=== PATIENT | male | born 1970 | race Caucasian/White ===

== ENCOUNTER 2017-09-03 07:06 | Day surgery (SDC) | payer OTHER ==
[~2017-09-03 07:06] MED LIST: Buffered Lidocaine 0.9% SYRIN* 5 ML/SYR SYRINGE INTRADERM ONE
[2017-09-03] MEDS ORDERED: ceFAZolin 2 GM PREMIX (*) 2 GM/50 ML BAG IVPB ONE (07:20)
[2017-09-03] MEDS ORDERED: Buffered Lidocaine 0.9% SYRIN* 5 ML/SYR SYRINGE ONE (07:20)
[2017-09-03] MEDS ORDERED: fentaNYL* 50 MCG/ML 2 ML VIAL (100 MCG VIAL) ONE (09:44)
[2017-09-03] MEDS ORDERED: Midazolam* 1 MG/ML 2 ML VIAL (2 MG) ONE (09:45)
[2017-09-03] MEDS ORDERED: Propofol* 10 MG/ML 20 ML BTL IV PUSH ONE (10:15)
[2017-09-03] MEDS ORDERED: Dexamethasone IV* 4 MG/ML 1 ML (4 MG) ONE (10:15)
[2017-09-03] MEDS ORDERED: Lidocaine 2% PF * 5 ML VIAL ONE (10:15)
[2017-09-03] MEDS ORDERED: Ondansetron INJ* 2 MG/ML VIAL ONE (10:15)
[2017-09-03] MEDS ORDERED: Bupivacaine 0.25% SDV* 30 ML ONE (10:16)
[2017-09-03] MEDS ORDERED: Ketorolac INJ* 30 MG/ML 1 ML VIAL IV PRN (10:47)
[2017-09-03] MEDS ORDERED: Ketorolac INJ* 30 MG/ML 1 ML VIAL ONE (11:23)
[2017-09-03] MEDS ORDERED: HYDROmorphone INJ* 1 MG/ML CARPUJECT SYRINGE ONE (11:23)
[2017-09-03] MEDS: HYDROmorphone INJ* 1 MG/ML CARPUJECT SYRINGE IV PRN ×2 (11:26→11:45)
[2017-09-03 12:03] VITALS: BP 136/95
--- NOTE | 2017-09-04 08:30 | OP ---
CC: PCP DATE OF OPERATION: 09/03/17 - [facility] DATE OF : 68 SURGEON: Lilliana Blanco MD BEATER ENGINEER: SYEDA Lomax. An supply chain assistant was needed for the entirety of the case to help with positioning, retraction, and was utilized throughout all portions of the case. ANESTHESIOLOGIST: Mayra Bentley MD ANESTHESIA: General. PRE-OP DIAGNOSIS: Right lateral epicondylitis. POST-OP DIAGNOSIS: Right lateral epicondylitis. OPERATIVE PROCEDURE: Right elbow lateral epicondylar debridement with exostectomy of lateral epicondyle and repair of extensor tendon. INDICATIONS: Finn Quintero is a 47-year-old male, who had a longstanding history of right elbow lateral epicondylitis, who has failed conservative management including therapy and injections. He has significant daily pain and limitation of activities and has failed conservative treatment. Risks and benefits of surgery were discussed at length and included, but are not limited to, bleeding, infection, damage to nerves, vessels, surrounding structures, wound nonhealing, persistent pain, need for further surgery, scarring, stiffness , incomplete relief of symptoms, risk of anesthesia. He has elected to proceed. TOURNIQUET TIME: 32 minutes, 250 mmHg. ESTIMATED BLOOD LOSS: Minimal. DESCRIPTION OF PROCEDURE: The patient was greeted in the preoperative area by the attending surgeon. Correct extremity was marked and consent was confirmed. The patient was then brought back to the operating suite where he was placed in supine position on the operating table. He then underwent general anesthesia with LMA intubation. The unsterile tourniquet was placed high in the proximal arm. A hand table was brought to the bed. The right arm was then prepped and draped in the usual sterile fashion beginning with chlorhexidine soap, scrub, and alcohol wipe and a final prep with ChloraPrep. After appropriate surgical pause indicating side, site, procedure, and administration of antibiotics, an Esmarch was used to exsanguinate the limb. Tourniquet was inflated to 250 mmHg. A 4-cm laterally based incision anterior to the lateral epicondyle was made sharply through the skin. There was scarring in the subcutaneous tissue superficial to the extensor origin. Extensor tendon was identified. The ECRL and EDC were identified. Incision was made between both incisions to expose the ECRB. Tendon quality was poor and there was significant inflammatory tissue. This was debrided using the knife and the rongeur. Once the tissue was removed, which was confirmed using the Nirschl scratch test, flaps under the EDC and ECRL were examined to make sure no fibrinous tissue was present. Care was taken to prevent any damage to the lateral collateral ligament. ECRB was also elevated to remove the diseased tissue. The lateral epicondyle was addressed and exposed. A small exostectomy was identified, which was removed using rongeur and flattened down using a rasp. Once this was done, a small K-wire was then used to drill the lateral epicondyle to allow for good bony bleeding to stimulate wound healing as well as exposed bleeding. Wounds were copiously irrigated. The extensor tendon was then reapproximated carefully with a water tight closure using 2-0 Ethibond with buried knots. The layers were then closed and the wound was then closed with 2-0 Vicryl and 4-0 Monocryl. Steri-Strips were applied. The wounds were injected with 0.25% Marcaine plain. Sterile dressings were applied. Splint was applied and tourniquet was deflated for total time of 33 minutes. He was awoken from anesthesia and transferred to PACU in stable condition. POSTOPERATIVE PLAN: He will be in the splint for about 2 weeks, nonweightbearing with no elbow, hand, and wrist range of motion while he moves his digits. He will be sent home on pain medication. I will see him back in 2 weeks, we will transition him into physical therapy and a splint. DVT prophylaxis considered but deferred due to no previous personal or family history. [id number]/[facility] #: [id number] [facility]PT[facility] HOSPITALStephanie
== END 2017-09-03 12:24 | disposition home or self-care (01) ==
LOC: OR 07:06
PROVIDERS: ATTEND Orthopaedic Surgery
DX: M77.11 Lateral epicondylitis, right elbow (principal); F17.210 Nicotine dependence, cigarettes, uncomplicated; G56.01 Carpal tunnel syndrome, right upper limb; M70.21 Olecranon bursitis, right elbow
CPT/HCPCS: C1776; J0690; J1100; J1170; J1885; J2250; J2405; J2704; J3010

== ENCOUNTER 2017-10-26 10:14 | Day surgery (SDC) | payer OTHER ==
[~2017-10-26 10:14] MED LIST changes: +Famotidine IV* 10 MG/ML 2 ML (20 mg) IV ONE; +Metoclopramide TAB* 10 MG PO ONE
[2017-10-26] MEDS ORDERED: Famotidine IV* 10 MG/ML 2 ML (20 mg) ONE (10:31)
[2017-10-26] MEDS ORDERED: Metoclopramide TAB* 10 MG ONE (10:31)
[2017-10-26] MEDS ORDERED: Ketorolac INJ* 30 MG/ML 1 ML VIAL ONE (11:53)
[2017-10-26] MEDS ORDERED: fentaNYL* 50 MCG/ML 2 ML VIAL (100 MCG VIAL) ONE (11:53)
[2017-10-26] MEDS ORDERED: Propofol* 10 MG/ML 20 ML BTL IV PUSH ONE (11:53)
[2017-10-26] MEDS ORDERED: Lidocaine 2% PF * 5 ML VIAL ONE (11:53)
[2017-10-26] MEDS ORDERED: Dexamethasone IV* 4 MG/ML 1 ML (4 MG) ONE (11:53)
[2017-10-26] MEDS ORDERED: Ondansetron INJ* 2 MG/ML VIAL ONE (11:53)
[2017-10-26] MEDS ORDERED: Midazolam* 1 MG/ML 2 ML VIAL (2 MG) ONE (11:54)
[2017-10-26] MEDS ORDERED: Lidocaine 1% INJ* 10 MG/ML 30 ML SDV ONE (12:00)
[2017-10-26] MEDS ORDERED: Ondansetron INJ* 2 MG/ML VIAL IV PRN (12:52)
[2017-10-26] MEDS ORDERED: Naloxone* 0.4 MG/ML 1 ML VIAL IV PRN (12:52)
[2017-10-26] MEDS ORDERED: oxyCODONE/Acetamin 5/325 MG* TAB PO PRN (12:52)
[2017-10-26] MEDS ORDERED: fentaNYL* 50 MCG/ML 2 ML VIAL (100 MCG VIAL) IV PRN (12:52)
[2017-10-26] MEDS ORDERED: Bupivacaine 0.25% SDV* 30 ML ONE (13:38)
[2017-10-26 14:41] VITALS: BP 133/85
--- NOTE | 2017-10-27 14:57 | OP ---
DATE OF OPERATION: 08/25/18 [facility] DATE OF : 68 SURGEON: Lilliana Blanco MD CLINICAL INFORMATICIST: No assistants available. ANESTHESIA: Local MAC. PRE-OP DIAGNOSIS: Right carpal tunnel syndrome. POST-OP DIAGNOSIS: Right carpal tunnel syndrome. OPERATIVE PROCEDURE: Right carpal tunnel release. TOURNIQUET TIME: 14 minutes at 250 mmHg. COMPLICATIONS: None. ESTIMATED BLOOD LOSS: Minimal. INDICATIONS: Finn Quintero is a 47-year-old male who sustained a work- related injury to his right elbow and hand. He was diagnosed with carpal tunnel syndrome. He did have a recent lateral epicondylar debridement, which he has recovered well, but he still has persistent numbness and tingling. EMG confirmed carpal tunnel syndrome. Risks and benefits of surgery were discussed at length and included, but are not limited to bleeding, infection, damage to nerves, vessels and surrounding structures, wound nonhealing, persistent pain, need for surgery, scarring, stiffness, incomplete relief of symptoms, and risk of anesthesia. DESCRIPTION OF PROCEDURE: The patient was greeted in the preoperative area by the attending surgeon. The correct extremity was marked and consent was confirmed. The patient was brought back to the operating suite, where he was placed in the supine position on the stretcher. He then underwent local MAC on the right forearm and a nonsterile tourniquet was placed high proximally in the right forearm. Right arm was prepped and draped in the usual sterile fashion, beginning with a prescrub of chlorhexidine soap and alcohol and a final prep with ChloraPrep. After appropriate surgical pause indicating side, site, and procedure, the carpal tunnel incision was then injected with 1% lidocaine. The Esmarch was used to exsanguinate the limb and the tourniquet was inflated to 250 mmHg, after which the 15 blade was used to make an incision in line with the radial border of the ring finger along the carpal tunnel on volar aspect of the palm. Structures were cleared by dissecting through spurs. The palmar fascia which was then excised with retraction on each side, the fat was carefully swept way. The Metzenbaum scissors were used to expose the carpal tunnel, which was found to be thick. The 15-blade was used to carefully expose the dk in the carpal tunnel. Once this was identified, the dissection first taken distally and once the carpal tunnel was released with care to not damage the nerves and contents of the carpal tunnel, this was checked to make sure it was freed with the blunt scissors as well as the freer. The dissection was then taken more proximally and the tissue was released proximally towards the wrist. The hand was taken through a range of motion and there was no evidence of compression. Again, the blunt tipped scissors with Allis were used to make sure that there was no evidence of compression left. The wound was copiously irrigated with sterile saline. The carpal tunnel was closed with 3-0 nylon in interrupted fashion. Sterile dressings were applied. The tourniquet was released for total time of 14 minutes. A splint was placed. He was awoken from anesthesia. The extremities were pink and well perfused. He was able to perform a thumbs up , ok sign, cross finger, flex/ext his digits.. He was taken to PACU in a stable condition. POSTOPERATIVE PLAN: He will be nonweightbearing. He will be in a splint until he follows up. He will be allowed hand range of motion as well as elbow range of motion. I will see the patient back in approximately 2 weeks. [id number]/[facility] #: [id number] LISANDRO
== END 2017-10-26 14:16 | disposition home or self-care (01) ==
LOC: OREAST 10:14
PROVIDERS: ATTEND Orthopaedic Surgery
DX: G56.01 Carpal tunnel syndrome, right upper limb (principal); Z72.0 Tobacco use; M43.10 Spondylolisthesis, site unspecified
CPT/HCPCS: A9270-GY; J1100; J1885; J2250; J2405; J2704; J3010

== ENCOUNTER 2022-10-20 05:25 | Inpatient (IN) ==
[2022-10-20] MEDS ORDERED: ceFAZolin 2 GM in NS PREMIX 2 GM/100 ML BAG IVPB ONE (05:36)
[2022-10-20] MEDS ORDERED: Chlorhexidine MOUTHWASH 0.12% 15 ML UDC ONE (05:36)
[2022-10-20] MEDS ORDERED: Buffered Lidocaine 1% SYRIN 1 ml INTRADERM ONE (06:00)
[2022-10-20] MEDS ORDERED: Famotidine IV 10 MG/ML 2 ml VIAL (20 mg) IV ONE (06:00)
[2022-10-20] MEDS ORDERED: Lactated Ringers 1000 ml BAG 1,000 ML IV SCH (06:00)
[2022-10-20] MEDS ORDERED: Famotidine IV 10 MG/ML 2 ml VIAL (20 mg) ONE (06:05)
[2022-10-20] MEDS ORDERED: Propofol 10 MG/ML 20 ML BTL ONE (06:31)
[2022-10-20] MEDS ORDERED: Rocuronium 50 mg VIAL 10 mg/ml 5 ml VIAL (50 mg) ONE ×3 (06:31→11:13)
[2022-10-20] MEDS ORDERED: Dexamethasone IV 4 MG/ML VIAL 1 ml VIAL ONE ×2 (06:31→08:12)
[2022-10-20] MEDS ORDERED: fentaNYL 100 mcg/2 ml 50 MCG/ML VIAL ONE ×3 (06:31→11:45)
[2022-10-20] MEDS ORDERED: Lidocaine 2% PF 5 ML VIAL ONE (06:31)
[2022-10-20] MEDS ORDERED: Midazolam 2 mg/2 ml VIAL 1 mg/ml 2 ml VIAL (2 mg) ONE (06:31)
[2022-10-20] MEDS ORDERED: Ondansetron 4 mg VIAL 2 MG/ML 2 ml VIAL ONE (06:31)
[2022-10-20] MEDS ORDERED: ceFAZolin VIAL VIAL ONE (07:09)
[2022-10-20] MEDS ORDERED: Gelfoam Sponge SIZE 100 SPONGE ONE (07:09)
[2022-10-20] MEDS ORDERED: Thrombin 5,000 UNITS(BOVINE) for Ultrasound Guided Pseudoaneursym ONE (07:09)
[2022-10-20] MEDS ORDERED: Lidocaine 1.5% EPI 1:200,000 30 ML SDV ONE (07:09)
[2022-10-20] MEDS ORDERED: Ketamine HCL 50 mg/ml 10 ml VIAL (500 MG) ONE (07:42)
[2022-10-20] MEDS ORDERED: Glycopyrrolate IV 0.2 MG/ML 1 ML VIAL ONE (07:42)
[2022-10-20] MEDS ORDERED: Thrombin 5,000 UNITS 1 APPLIC KIT - topical use - TOPICAL ONE ×2 (07:48→09:16)
[2022-10-20] MEDS ORDERED: Naloxone 0.4 mg VIAL 0.4 mg/ml 1 ml VIAL IV PRN (08:13)
[2022-10-20] MEDS ORDERED: Levalbuterol HFA INHALER MDI ONE (08:40)
[2022-10-20] MEDS ORDERED: Acetaminophen IV 1 GM/100ML 1,000 MG/100 ML BAG IV ONE (08:57)
[2022-10-20] MEDS ORDERED: Ondansetron 4 mg VIAL 2 MG/ML 2 ml VIAL IV PRN (10:00)
[2022-10-20] MEDS: fentaNYL 100 mcg/2 ml 50 MCG/ML VIAL IV PRN ×5 (10:45→11:45)
[2022-10-20] MEDS ORDERED: HYDROmorphone 1 MG/1 ML SYRINGE ONE (12:01)
[2022-10-20] MEDS: HYDROmorphone 1 MG/1 ML SYRINGE IV PRN ×2 (12:05→12:17)
[2022-10-20] MEDS: Nicotine PATCH 7 MG/24 HR PATCH TRANSDERM SCH (14:35)
[2022-10-20] MEDS: HYDROcodone/ACETAMIN 5/325 mg TAB PO PRN ×2 (14:36→20:18)
[2022-10-20] MEDS: Lactated Ringers 1000 ml BAG 1,000 ML IV SCH (16:17)
[2022-10-21] MEDS: Lactated Ringers 1000 ml BAG 1,000 ML IV SCH (05:18)
[2022-10-21] MEDS: Nicotine PATCH 7 MG/24 HR PATCH TRANSDERM SCH (09:33)
[2022-10-21] MEDS: HYDROcodone/ACETAMIN 5/325 mg TAB PO PRN (18:42)
[2022-10-22] MEDS: HYDROcodone/ACETAMIN 5/325 mg TAB PO PRN ×3 (06:12→21:26)
[2022-10-22] MEDS: Nicotine PATCH 7 MG/24 HR PATCH TRANSDERM SCH (14:19)
[2022-10-23] MEDS ORDERED: Thrombin 5,000 UNITS 1 APPLIC KIT - topical use - TOPICAL ONE (10:23)
[2022-10-23] MEDS ORDERED: ceFAZolin VIAL VIAL ONE (10:23)
[2022-10-23] MEDS ORDERED: Gelfoam Sponge SIZE 100 SPONGE ONE (10:24)
[2022-10-23] MEDS: Nicotine PATCH 7 MG/24 HR PATCH TRANSDERM SCH (10:28)
[2022-10-23 12:12] LABS: Rapid COVID-19 Molecular Undetected (Undetected)
[2022-10-23] MEDS ORDERED: Propofol 10 MG/ML 20 ML BTL ONE (12:41)
[2022-10-23] MEDS ORDERED: Rocuronium 50 mg VIAL 10 mg/ml 5 ml VIAL (50 mg) ONE ×2 (12:41→14:08)
[2022-10-23] MEDS ORDERED: Lidocaine 2% PF 5 ML VIAL ONE (12:42)
[2022-10-23] MEDS ORDERED: fentaNYL 100 mcg/2 ml 50 MCG/ML VIAL ONE ×4 (12:42→15:03)
[2022-10-23] MEDS ORDERED: Midazolam 2 mg/2 ml VIAL 1 mg/ml 2 ml VIAL (2 mg) ONE ×2 (12:48→14:05)
[2022-10-23] MEDS ORDERED: Ketamine HCL 50 mg/ml 10 ml VIAL (500 MG) ONE (12:48)
[2022-10-23] MEDS ORDERED: ceFAZolin 2 GM PREMIX 2 GM/50 ML BAG ONE (12:55)
[2022-10-23] MEDS ORDERED: Acetaminophen IV 1 GM/100ML 1,000 MG/100 ML BAG IV ONE (14:06)
[2022-10-23] MEDS ORDERED: Sugammadex 500 MG/5 ML 5 ml VIAL IV PUSH ONE (14:16)
[2022-10-23] MEDS ORDERED: oxyCODONE/Acetamin 5/325 mg TAB PO PRN (15:02)
[2022-10-23] MEDS ORDERED: Naloxone 0.4 mg VIAL 0.4 mg/ml 1 ml VIAL IV PRN (15:02)
[2022-10-23] MEDS: fentaNYL 100 mcg/2 ml 50 MCG/ML VIAL IV PRN ×2 (15:05→15:33)
[2022-10-23] MEDS ORDERED: oxyCODONE/Acetamin 5/325 mg TAB ONE (15:30)
[2022-10-23] MEDS: Lactated Ringers 1000 ml BAG 1,000 ML IV SCH (17:36)
[2022-10-24] MEDS: Lactated Ringers 1000 ml BAG 1,000 ML IV SCH (06:02)
[2022-10-24 07:55] VITALS: BP 120/78
[2022-10-24] MEDS: Nicotine PATCH 7 MG/24 HR PATCH TRANSDERM SCH (08:34)
== END 2022-10-24 10:31 | disposition home or self-care (01) | DRG 321 ==
LOC: OR 05:25 → SSU 05:25
PROVIDERS: ADMIT Neurological Surgery; ATTEND Neurological Surgery
PROC: O.NEI&D (2022-10-23 13:15)